=== PATIENT | female | born 1995 | race African-American/Black ===

== ENCOUNTER 2019-01-01 17:59 | Emergency (ER) | payer SELFPAY ==
[~2019-01-01] VITALS: Ht 180.3 cm; Wt 95.0 kg
[2019-01-01 18:28] VITALS: BP 143/96
[2019-01-01 19:41] LABS: BASOPHILS % 0.8 % (0.0-2.0); EOSINOPHILS % 0.2 % (0.0-5.0); HEMATOCRIT. 37.4 % (36.0-48.0); HEMOGLOBIN. 12.5 g/dL (12.0-16.0); LYMPHOCYTES % 33.5 % (20.0-50.0); MEAN CORPUSCULAR HEMOGLOBIN 28.4 pg (28.0-32.0); MEAN CORPUSCULAR VOLUME 84.7 fL (81.0-99.0); MEAN PLATELET VOLUME 7.8 fl (7.4-10.4); MONOCYTES % 13.1 % (2.0-8.0); NEUTROPHILS % 52.4 % (40.0-76.0); PLATELET 226 x1000/uL (130-400); RED BLOOD CELL COUNT 4.42 mill/uL (4.2-5.4); RED CELL DISTRIBUTION WIDTH 14.7 % (11.6-14.6)
[2019-01-01 19:47] LABS: CHLORIDE 107 mEq/L (98-107)
[2019-01-01 21:48] LABS: CLARITY URINE CLOUDY (CLEAR); COLOR URINE DARK YELLOW (YELLOW); KETONES URINE 1+ (NEGATIVE); LEUKOCYTE ESTERASE URINE TRACE (NEGATIVE); NITRITE URINE NEGATIVE (NEGATIVE); OCCULT BLOOD URINE NEGATIVE (NEGATIVE); PH URINE 6.5 (4.5-8.0); PROTEIN URINE 1+ (NEGATIVE); SPECIFIC GRAVITY URINE 1.034 (1.005-1.030)
== END 2019-01-01 23:17 | disposition home or self-care (01) ==
LOC: ER 17:59
DX: R60.0 Localized edema (principal); J45.909 Unspecified asthma, uncomplicated; R00.2 Palpitations; R42 Dizziness and giddiness; R11.0 Nausea
CPT/HCPCS: 36415; 81025; 83880; 85379; 99283